=== PATIENT | female | born 1935 | race Caucasian/White ===

== ENCOUNTER 2021-03-30 19:08 | Emergency (ER) | payer SELFPAY ==
[~2021-03-30] VITALS: Ht 139.7 cm; Wt 52.9 kg
[2021-03-30 19:30] VITALS: BP 154/80
[2021-03-30] MEDS ORDERED: MORPHINE SULFATE INJ 2 MG/ML DISP.SYRIN IM ONE (19:30)
--- NOTE | 2021-03-30 19:37 | NUR ---
PHILIPPE [phone]
--- NOTE | 2021-03-30 19:51 | NUR ---
Patient does not wish to proceed with medical care recommended by Dr. Yepez. Patient/family given information related to possible complications, up to and including , which could occur as a result of leaving the hospital at this time. Patient/family verbalizes understanding of risks involved due to leaving against medical advice. Patient has signed AMA form.
== END 2021-03-30 19:59 | disposition left against medical advice (07) ==
LOC: ER 19:13 → EDBD 19:13 → ER 19:59
DX: S70.01XA Contusion of right hip, initial encounter (principal); R26.2 Difficulty in walking, not elsewhere classified; I10 Essential (primary) hypertension; W19.XXXA Unspecified fall, initial encounter; Y93.89 Activity, other specified; Y92.89 Other specified places as the place of occurrence of the external cause; Y99.8 Other external cause status